=== PATIENT | female | born 1930 | race Caucasian/White ===

== ENCOUNTER 2016-05-02 10:05 | Day surgery (SDC) | payer OTHER, MEDICARE ==
[~2016-05-02] VITALS: Ht 152.4 cm; Wt 55.0 kg
[~2016-05-02 10:05] MED LIST: GLIPIZIDE10 MG PO; LEVOTHYROXINE50 MCG PO; LISINOPRIL40 MG PO; LO-DOSE ASPIRIN81 M2 PO; MAXZIDE 75/501 EACH PO; METOPROLOL TAR100 MG PO; SIMVASTATIN10 MG PO; VITAMIN D31000 UNI2 PO
[2016-05-02 10:35] LABS: HEMATOCRIT 41.1 % (36.0-46.0); MCH 31.9 PG (29.0-34.0); MCV 90.9 FL (83-99); MEAN PLAT.VOLUME 11.5 uM^3 (9.5-12.4); PLATELET COUNT 281 K/uL (156-360); RBC DIS.WIDTH-CV 13.3 % (11.8-14.6); RED BLOOD COUNT 4.52 M/uL (3.80-5.20); WHITE BLOOD COUNT 10.2 K/uL (4.1-10.2)
[2016-05-02 10:36] LABS: EOSINOPHIL (%) 3.1 % (0-5); EOSINOPHIL COUNT 0.3 K/uL (0-0.3); IMMATURE GRANULOCYTE (%) 0.3 % (0.0-0.7); IMMATURE GRANULOCYTE COUNT 0.3 K/uL; LYMPHOCYTE COUNT 2.2 K/uL (1.0-2.8); MONOCYTE (%) 9.3 % (3-12); NEUTROPHIL (%) 65.2 % (45-76); NEUTROPHIL COUNT 6.6 K/uL (1.8-6.4)
[2016-05-02 10:43] LABS: CHLORIDE 103 mEq/L (99-109); POTASSIUM 4.9 mEq/L (3.7-5.4); SODIUM 136 mEq/L (136-147)
[2016-05-02 10:44] LABS: PROTHROMBIN TIME 10.2 (9.2-11.2)
[2016-05-02 10:45] LABS: GLUCOSE 160 mg/dL (70-99)
[2016-05-02 10:46] VITALS: BP 182/75
[2016-05-02 10:47] LABS: ANION GAP 11 MEQ/L (2-14)
[2016-05-02 10:49] LABS: ALKALINE PHOSPHATASE 117 IU/L (3-129); GFR ESTIMATE (CALCULATED) 28 mL/min/
[2016-05-02 10:50] LABS: UREA NITROGEN (BUN) 41 mg/dL (9-23)
[2016-05-02 10:58] LABS: POINT-OF-CARE METER ID UU14174212
[2016-05-02] MEDS ORDERED: COLACE100 MG PO (15:38)
[2016-05-02] MEDS ORDERED: HYDROCODON-ACE1 EAC7 PO (15:38)
[2016-05-02 16:12] VITALS: BP 177/71
[2016-05-02 16:50] VITALS: BP 198/86
== END 2016-05-02 17:10 | disposition home or self-care (01) ==
LOC: SDC 10:05
PROVIDERS: Thoracic Surgery (Cardiothoracic Vascular Surgery)
PROC: 0WBC4ZX Excision of Mediastinum, Percutaneous Endoscopic Approach, Diagnostic (ICD-10-PCS; principal; 2016-05-02)
DX: C34.90 Malignant neoplasm of unspecified part of unspecified bronchus or lung (principal); E78.5 Hyperlipidemia, unspecified; E11.9 Type 2 diabetes mellitus without complications; I10 Essential (primary) hypertension
CPT/HCPCS: 80053; 82948; 85025; 85610; 86850; 86900; 86901; 88305; 93005; J0131; J0690; J1100; J1885; J2405; J2710; J3010

== ENCOUNTER 2016-05-14 05:26 | Inpatient (IN) | payer OTHER, MEDICARE ==
[2016-05-14] VITALS (9 sets, daily range): BP systolic 103–193; BP diastolic 39–90
[~2016-05-14] VITALS: Ht 149.9 cm; Wt 56.7 kg
[~2016-05-14 05:26] MED LIST changes: +COLACE100 MG PO; +HYDROCODON-ACE1 EAC7 PO
[2016-05-14 06:39] LABS: POINT-OF-CARE METER ID UU14174212
[2016-05-14 13:03] LABS: POINT-OF-CARE USER ID 515036437
[2016-05-14 17:35] LABS: METH RESISTANT S AUREUS PCR NEGATIVE (NEGATIVE)
[2016-05-14 17:47] LABS: PROBE CHECK PASS; SPECIMEN PROCESSING CONTROL PASS
[2016-05-15] VITALS (15 sets, daily range): BP systolic 114–177; BP diastolic 51–95
[2016-05-15 05:54] LABS: ANION GAP 11 MEQ/L (2-14); CHLORIDE 94 MEQ/L (99-109); GFR ESTIMATE (CALCULATED) 45 mL/min/; GLUCOSE 113 mg/dL (70-99); SAMPLE HEMOLYSIS CHECK 0; SAMPLE ICTERIC CHECK 0; SAMPLE LIPEMIA CHECK 0; SODIUM 130 MEQ/L (136-147); UREA NITROGEN (BUN) 24 mg/dL (9-23)
[2016-05-15 06:21] LABS: HEMATOCRIT 27.4 % (36.0-46.0); MCH 30.4 PG (29.0-34.0); MCHC 33.6 G/DL (30.0-36.0); MCV 90.4 FL (83-99); MEAN PLAT.VOLUME 10.9 uM^3 (9.5-12.4); PLATELET COUNT 239 K/uL (156-360); RBC DIS.WIDTH-CV 13.5 % (11.8-14.6); RBC DIS.WIDTH-SD 44.3 % (39-53)
[2016-05-15 06:23] LABS: WHITE BLOOD COUNT 14.1 K/uL (4.1-10.2)
[2016-05-15 06:24] LABS: RED BLOOD COUNT 3.03 M/uL (3.80-5.20)
[2016-05-15 12:23] LABS: POINT-OF-CARE METER ID UU13113748
[2016-05-15 17:35] LABS: POINT-OF-CARE METER ID UU14174217
[2016-05-15 21:06] LABS: POINT-OF-CARE METER ID UU14174217
[2016-05-16] VITALS (15 sets, daily range): BP systolic 0–206; BP diastolic 0–100
[2016-05-16 05:45] LABS: HEMATOCRIT 26.6 % (36.0-46.0); MCH 31.2 PG (29.0-34.0); MCV 89.3 FL (83-99); MEAN PLAT.VOLUME 11.3 uM^3 (9.5-12.4); PLATELET COUNT 224 K/uL (156-360); RBC DIS.WIDTH-CV 13.6 % (11.8-14.6); RBC DIS.WIDTH-SD 44.6 % (39-53); RED BLOOD COUNT 2.98 M/uL (3.80-5.20); WHITE BLOOD COUNT 15.4 K/uL (4.1-10.2)
[2016-05-16 06:44] LABS: ANION GAP 7 MEQ/L (2-14); CHLORIDE 92 MEQ/L (99-109); GFR ESTIMATE (CALCULATED) 50 mL/min/; GLUCOSE 146 mg/dL (70-99); POTASSIUM 4.7 MEQ/L (3.7-5.4); SAMPLE HEMOLYSIS CHECK 0; SAMPLE ICTERIC CHECK 0; SAMPLE LIPEMIA CHECK 0; UREA NITROGEN (BUN) 21 mg/dL (9-23)
[2016-05-16 06:45] LABS: SODIUM 123 MEQ/L (136-147)
[2016-05-16 12:16] LABS: POINT-OF-CARE METER ID UU14162636
[2016-05-16 17:19] LABS: POINT-OF-CARE METER ID UU14162636
[2016-05-16 21:28] LABS: POINT-OF-CARE METER ID UU13113803
[2016-05-17] VITALS (10 sets, daily range): BP systolic 124–184; BP diastolic 52–93
[2016-05-17 06:05] LABS: HEMATOCRIT 24.6 % (36.0-46.0); MCH 31.2 PG (29.0-34.0); MCHC 35.4 G/DL (30.0-36.0); MCV 88.2 FL (83-99); MEAN PLAT.VOLUME 11.3 uM^3 (9.5-12.4); PLATELET COUNT 182 K/uL (156-360); RBC DIS.WIDTH-CV 13.3 % (11.8-14.6); RBC DIS.WIDTH-SD 43.2 % (39-53); RED BLOOD COUNT 2.79 M/uL (3.80-5.20); WHITE BLOOD COUNT 11.7 K/uL (4.1-10.2)
[2016-05-17 06:44] LABS: ANION GAP 9 MEQ/L (2-14); CHLORIDE 85 MEQ/L (99-109); GFR ESTIMATE (CALCULATED) > 59 mL/min/; GLUCOSE 152 mg/dL (70-99); POTASSIUM 3.5 MEQ/L (3.7-5.4); SAMPLE HEMOLYSIS CHECK 0; SAMPLE ICTERIC CHECK 0; SAMPLE LIPEMIA CHECK 0; SODIUM 120 MEQ/L (136-147); UREA NITROGEN (BUN) 21 mg/dL (9-23)
[2016-05-17 07:51] LABS: POINT-OF-CARE METER ID UU14162636; POINT-OF-CARE USER ID NUTJLF39
[2016-05-17 11:10] LABS: POINT-OF-CARE METER ID UU14162636; POINT-OF-CARE USER ID NUTJLF39
[2016-05-17 13:58] LABS: ADD MIUA? YES; BILIRUBIN NEGATIVE; BLOOD MODERATE; COLOR YELLOW ((YELLOW)); GLUCOSE (STRIP) 250; KETONES TRACE; LEUKOCYTES TRACE; NITRITE NEGATIVE; PROTEIN (STRIP) TRACE; SPECIFIC GRAVITY 1.016 (1.000-1.030); UROBILINOGEN 0.2 MG/DL (0.2-1.0)
[2016-05-17 14:37] LABS: EPITHELIAL CELLS RARE; MUCUS NONE SEEN; WHITE BLOOD CELLS 0-5 /HPF (0-5)
[2016-05-17 14:38] LABS: BACTERIA RARE; CASTS NONE SEEN /LPF; CRYSTALS NONE SEEN
[2016-05-17 17:15] LABS: POINT-OF-CARE METER ID UU13113803; POINT-OF-CARE USER ID NUTJLF39
[2016-05-17 22:08] LABS: POINT-OF-CARE METER ID UU13113731
[2016-05-18] VITALS (7 sets, daily range): BP systolic 141–195; BP diastolic 56–93
[2016-05-18 05:49] LABS: HEMATOCRIT 22.9 % (36.0-46.0); MCH 30.8 PG (29.0-34.0); MCHC 35.4 G/DL (30.0-36.0); MCV 87.1 FL (83-99); MEAN PLAT.VOLUME 11.1 uM^3 (9.5-12.4); PLATELET COUNT 221 K/uL (156-360); RBC DIS.WIDTH-CV 13.4 % (11.8-14.6); RBC DIS.WIDTH-SD 42.6 % (39-53); RED BLOOD COUNT 2.63 M/uL (3.80-5.20)
[2016-05-18 06:12] LABS: ANION GAP 9 MEQ/L (2-14); CHLORIDE 91 MEQ/L (99-109); GFR ESTIMATE (CALCULATED) > 59 mL/min/; GLUCOSE 160 mg/dL (70-99); POTASSIUM 3.5 MEQ/L (3.7-5.4); SAMPLE HEMOLYSIS CHECK 0; SAMPLE ICTERIC CHECK 0; SAMPLE LIPEMIA CHECK 0; SODIUM 125 MEQ/L (136-147); UREA NITROGEN (BUN) 19 mg/dL (9-23); URIC ACID 5.3 mg/dL (3.1-9.2)
[2016-05-18 12:17] LABS: POINT-OF-CARE METER ID UU13113731
[2016-05-18 17:03] LABS: POINT-OF-CARE METER ID UU13113731
[2016-05-18 21:47] LABS: POINT-OF-CARE METER ID UU13113731
[2016-05-19] VITALS (11 sets, daily range): BP systolic 0–202; BP diastolic 0–93
[2016-05-19 06:31] LABS: ANION GAP 10 MEQ/L (2-14); CHLORIDE 95 MEQ/L (99-109); GFR ESTIMATE (CALCULATED) > 59 mL/min/; GLUCOSE 188 mg/dL (70-99); POTASSIUM 3.7 MEQ/L (3.7-5.4); SAMPLE HEMOLYSIS CHECK 0; SAMPLE ICTERIC CHECK 0; SAMPLE LIPEMIA CHECK 0; SODIUM 130 MEQ/L (136-147); UREA NITROGEN (BUN) 20 mg/dL (9-23)
[2016-05-19 11:55] LABS: POINT-OF-CARE METER ID UU13113748; POINT-OF-CARE USER ID 606021424
[2016-05-19 16:52] LABS: POINT-OF-CARE METER ID UU14174217
[2016-05-19 22:09] LABS: POINT-OF-CARE METER ID UU13113803
[2016-05-20] VITALS (7 sets, daily range): BP systolic 155–205; BP diastolic 73–110
[2016-05-20 06:05] LABS: ANION GAP 10 MEQ/L (2-14); CHLORIDE 97 MEQ/L (99-109); GFR ESTIMATE (CALCULATED) > 59 mL/min/; GLUCOSE 207 mg/dL (70-99); IRON 38 MCG/DL (35-150); POTASSIUM 3.9 MEQ/L (3.7-5.4); SAMPLE HEMOLYSIS CHECK 0; SAMPLE ICTERIC CHECK 0; SAMPLE LIPEMIA CHECK 0; SODIUM 134 MEQ/L (136-147); UREA NITROGEN (BUN) 21 mg/dL (9-23)
[2016-05-20 06:22] LABS: HEMATOCRIT 27.2 % (36.0-46.0); MCH 31.4 PG (29.0-34.0); MCHC 34.6 G/DL (30.0-36.0); MEAN PLAT.VOLUME 10.7 uM^3 (9.5-12.4); RBC DIS.WIDTH-CV 14.1 % (11.8-14.6); RBC DIS.WIDTH-SD 45.7 % (39-53); RED BLOOD COUNT 2.99 M/uL (3.80-5.20)
[2016-05-20 06:28] LABS: PLATELET COUNT 313 K/uL (156-360); WHITE BLOOD COUNT 13.3 K/uL (4.1-10.2)
[2016-05-20 11:41] LABS: POINT-OF-CARE METER ID UU14174217
[2016-05-20] MEDS ORDERED: HYDROCODON-ACE1 EAC7 PO (18:29)
[2016-05-20] MEDS ORDERED: SAMSCA15 MG PO (18:36)
== END 2016-05-20 19:19 | disposition home or self-care (01) | DRG 164 ==
LOC: 4WEST 05:26 → 2SOUTH 05:26 → 4WEST 15:50
PROVIDERS: Internal Medicine Nephrology; Internal Medicine Pulmonary Disease; Thoracic Surgery (Cardiothoracic Vascular Surgery)
DX: C34.11 Malignant neoplasm of upper lobe, right bronchus or lung (principal); E22.2 Syndrome of inappropriate secretion of antidiuretic hormone; D62 Acute posthemorrhagic anemia; J43.9 Emphysema, unspecified; E11.9 Type 2 diabetes mellitus without complications; E78.00 Pure hypercholesterolemia, unspecified; E78.5 Hyperlipidemia, unspecified; I10 Essential (primary) hypertension; E07.9 Disorder of thyroid, unspecified; Z80.8 Family history of malignant neoplasm of other organs or systems; Z82.49 Family history of ischemic heart disease and other diseases of the circulatory system; Z87.891 Personal history of nicotine dependence
CPT/HCPCS: 71010; 71020; 80048; 80069; 81003; 82948; 83540; 83935; 84300; 84443; 84466; 84550; 85027; 87641; 88300; 88305; 88309; 94010; 94640; 94640 76; 94799; 97530 GO; 97530 GP; 99202; J0131; J0360; J0690; J1200; J1644; J1815; J1940; J2710; J3010; J7030; J7050; J7120

== ENCOUNTER → 2017-05-14 | Outpatient (CLI) | payer MEDICARE ==
[~2017-05-14] MED LIST changes: +SAMSCA15 MG PO
== END | disposition home or self-care (01) ==
LOC: CDC 15:44
DX: C34.90 Malignant neoplasm of unspecified part of unspecified bronchus or lung (principal)
CPT/HCPCS: 93000

== ENCOUNTER 2017-05-23 08:23 | Day surgery (SDC) | payer OTHER, MEDICARE ==
[~2017-05-23] VITALS: Ht 152.4 cm; Wt 52.1 kg
[~2017-05-23 08:23] MED LIST changes: +FOLIC ACID0.8 M1 PO; -METOPROLOL TAR100 MG PO; +NORVASC5 MG PO; +TOPROL XL25 MG PO; +TRADJENTA5 MG PO
[2017-05-23 09:10] VITALS: BP 186/85
[2017-05-23] MEDS ORDERED: HYDROCODON-ACE1 EAC7 PO (12:09)
[2017-05-23] MEDS ORDERED: COLACE100 MG PO (12:09)
[2017-05-23 13:35] VITALS: BP 174/80
[2017-05-23 14:23] LABS: TROP-I INTERPRETATION NEGATIVE; TROPONIN-I < 0.01 ng/mL (0.0-0.30)
[2017-05-23 14:50] VITALS: BP 169/83
== END 2017-05-23 15:25 | disposition home or self-care (01) ==
LOC: SDC 08:23
PROVIDERS: Thoracic Surgery (Cardiothoracic Vascular Surgery)
PROC: 07B74ZX Excision of Thorax Lymphatic, Percutaneous Endoscopic Approach, Diagnostic (ICD-10-PCS; principal; 2017-05-23)
DX: C34.31 Malignant neoplasm of lower lobe, right bronchus or lung (principal); D76.3 Other histiocytosis syndromes; J60 Coalworker's pneumoconiosis; Z87.891 Personal history of nicotine dependence; M19.90 Unspecified osteoarthritis, unspecified site; E11.9 Type 2 diabetes mellitus without complications; Z79.84 Long term (current) use of oral hypoglycemic drugs; I10 Essential (primary) hypertension; E03.9 Hypothyroidism, unspecified; Z79.82 Long term (current) use of aspirin; Z96.643 Presence of artificial hip joint, bilateral; Z92.21 Personal history of antineoplastic chemotherapy
CPT/HCPCS: 82948; 84484; 86850; 86900; 86901; 88305; 93005; J0690; J2405; J2710; J3010